=== PATIENT | female | born 1990 | race Two or more races ===

== ENCOUNTER 2018-03-07 11:31 | Emergency (ER) | payer OTHER ==
[~2018-03-07] VITALS: Ht 160 cm; Wt 56.2 kg
[2018-03-07] MEDS ORDERED: Lidocaine HCl 2% Jelly 6ml Tube TOPIC ONE (12:15)
[2018-03-07] MEDS ORDERED: Acetaminophen 500mg (ES) tab ORAL ONE (12:15)
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
[2018-03-07] MEDS ORDERED: NKM (13:24)
[2018-03-07] MEDS ORDERED: HIBICLENS118 ML TP (13:50)
[2018-03-07] MEDS ORDERED: LD2JL30 TOPIC (13:50)
[2018-03-07] MEDS ORDERED: TYLENOL EXTRA500 MG ORAL (13:50)
[2018-03-07 13:59] VITALS: BP 125/80
== END 2018-03-07 13:59 | disposition home or self-care (01) ==
LOC: EMR 12:48
DX: S01.512A Laceration without foreign body of oral cavity, initial encounter (principal); K04.7 Periapical abscess without sinus; R51 Headache; J34.89 Other specified disorders of nose and nasal sinuses; S00.511A Abrasion of lip, initial encounter; V43.52XA Car driver injured in collision with other type car in traffic accident, initial encounter; Y92.488 Other paved roadways as the place of occurrence of the external cause; F17.200 Nicotine dependence, unspecified, uncomplicated
CPT/HCPCS: 70486; 99284